=== PATIENT | male | born 1990 | race Caucasian/White ===

== ENCOUNTER 2016-12-15 18:45 | Emergency (ER) | payer OTHER ==
[~2016-12-15] VITALS: Ht 172.7 cm; Wt 74.8 kg
[2016-12-15 18:52] VITALS: BP 130/85
--- NOTE | 2016-12-15 19:36 | PHYS DOC ---
Past History Past Medical History: Asthma Past Surgical History: No Surgical History Alcohol Use: Occasionally Drug Use: None Adult General Chief Complaint Chief Complaint: CHEST WALL PAIN HPI HPI Patient is a 26 year old M who presents with R sided chest wall pain that started after lifting something heavy at work. He states that his pain is worse with movement and palpation. His pain is improved with rest and positioning. His pain does not radiate and is not associated with any other symptoms including shortness of breath Review of Systems Review of Systems Constitutional: Denies fever or chills [] Eyes: Denies change in visual acuity, redness, or eye pain [] HENT: Denies nasal congestion or sore throat [] Respiratory: Denies cough or shortness of breath [] Cardiovascular: No additional information not addressed in HPI [] GI: Denies abdominal pain, nausea, vomiting, bloody stools or diarrhea [] : Denies dysuria or hematuria [] Musculoskeletal: Denies back pain or joint pain [] Integument: Denies rash or skin lesions [] Neurologic: Denies headache, focal weakness or sensory changes [] Endocrine: Denies polyuria or polydipsia [] Family History Family History Noncontributory Current Medications Current Medications No medications Allergies Allergies Allergies Coded Allergies Type Severity Reaction Last Updated Verified No Known Drug Allergies 05/24/16 No Physical Exam Physical Exam Constitutional: Well developed, well nourished, no acute distress, non-toxic appearance. [] HENT: Normocephalic, atraumatic, Eyes: EOMI, conjunctiva normal, no discharge. [] Neck: Normal range of motion, no tenderness, supple, no stridor. [] Cardiovascular:Heart rate regular rhythm, no murmur [] Lungs & Thorax: Bilateral breath sounds clear to auscultation [] Mild to moderate pain over the R mid axilla. Abdomen: Bowel sounds normal, soft, no tenderness, no masses, no pulsatile masses. [] Extremities: No tenderness, no cyanosis, no clubbing, ROM intact, no edema. [] Neurologic: Alert and oriented X 3, normal motor function, normal sensory function, no focal deficits noted. [] Psychologic: Affect normal, judgement normal, mood normal. [] Current Patient Data Vital Signs Vital Signs Date Time Temp Pulse Resp B/P (MAP) Pulse Ox O2 Delivery O2 Flow Rate FiO2 12/15/16 18:52 98.4 79 18 98 Room Air EKG EKG [] Radiology/Procedures Radiology/Procedures [] Course & Med Decision Making Course & Med Decision Making Pertinent Labs and Imaging studies reviewed. (See chart for details) Imaging was declined Dragon Disclaimer Dragon Disclaimer This chart was dictated in whole or in part using Voice Recognition software in a busy, high-work load, and often noisy Emergency Department environment. It may contain unintended and wholly unrecognized errors or omissions. Departure Departure: Impression: Primary Impression: Muscle strain Disposition: HOME, SELF-CARE Condition: STABLE Referrals: PCP,NO (PCP) Patient Instructions: Muscle Strain Additional Instructions: Bharathi was seen in the ED for chest wall pain. No emergency medical condition was found on history or physical exam. His pain was most consistent with a muscle strain. He was advised to stretch and continue activity as tolerated. He is advised consider lidocaine patches for pain and to follow-up with his primary care doctor as needed for further management. He is advised to return to the emergency room if he develops new or worsening symptoms. YADI JACKMAN MD Dec 15, 2016 19:36
== END 2016-12-15 19:40 | disposition home or self-care (01) ==
LOC: ER 18:45
DX: S29.011A Strain of muscle and tendon of front wall of thorax, initial encounter (principal); J45.909 Unspecified asthma, uncomplicated; X58.XXXA Exposure to other specified factors, initial encounter; Y93.89 Activity, other specified; Y99.8 Other external cause status; Y92.89 Other specified places as the place of occurrence of the external cause
CPT/HCPCS: 99281

== ENCOUNTER 2017-01-13 12:45 | Emergency (ER) | payer OTHER ==
[~2017-01-13] VITALS: Ht 170.2 cm; Wt 72.7 kg
[2017-01-13 12:54] VITALS: BP 139/92
--- NOTE | 2017-01-13 13:07 | PHYS DOC ---
General Chief Complaint: MUSCLE SPASM/CRAMP Stated Complaint: muscle cramps Time Seen by MD: 13:05 Source: patient, old records Exam Limitations: no limitations Problems: History of Present Illness Initial Comments Patient is a 26-year-old male who comes to the ED complaining of left pectoral spasm. Patient states that all day today his left pectoral muscle has been intermittently cramping. It is not causing him any discomfort he denies any trauma he is just here because it has been doing it since he woke up. He was seen here a month ago for right-sided pectoral strain he was advised to follow- up with his primary care physician and chose not to. 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 He denies any arm symptoms no chest pain no difficulty breathing diaphoresis nausea vomiting or arm or neck symptoms. No pre-arrival treatment. Onset: this morning Severity: mild Pain/Injury Location: left other (pectoral) Method of Injury: unknown Modifying Factors: improves with other Allergies: Coded Allergies: No Known Drug Allergies (Unverified , 05/24/16) Past Medical History Medical History: no pertinent history, other (asthma) Surgical History: no surgical history Social History Smoker: non-smoker, chew Alcohol: none Drugs: none Review of Systems Constitutional: denies chills, denies fever, denies malaise Respiratory: denies cough, denies shortness of breath Cardiovascular: denies chest pain, denies palpitations, denies syncope Gastrointestinal: denies abdominal pain, denies diarrhea, denies nausea, denies vomiting Musculoskeletal: see HPI, denies back pain, denies joint pain, denies joint swelling, denies muscle pain, denies muscle stiffness, denies neck pain Psychiatric/Neurological: denies headache, denies numbness, denies paresthesia Physical Exam General Appearance: WD/WN, no apparent distress Neck: non-tender, supple Cardiovascular/Respiratory: normal peripheral pulses (no pectoral hypertonicity , tenderness, or spasm noted on exam), no respiratory distress Back: normal inspection, no CVA tenderness, no vertebral tenderness Shoulder: normal inspection, non-tender, no evidence of injury, normal ROM Elbow/Forearm: normal inspection, non-tender, no evidence of injury, normal ROM Neurologic/Tendon: normal sensation, normal motor functions, normal tendon functions, responds to pain, no evidence tendon injury Psychiatric: alert, oriented x 3 Skin: normal color, warm/dry Orders, Labs, Meds I advised him to discontinue smokeless tobacco BMP by i-STAT reveals normal findings, BUNs 19, creatinine 1.1 indicative of a mild dehydration. Departure Time of Disposition: 13:44 Disposition: 01 HOME, SELF-CARE Diagnosis: screening medical exam, smokeless tobacco abuse Condition: GOOD Patient Instructions: Dehydration, Adult, [id number] Additional Instructions: Discontinue smokeless tobacco use, seek medical assistance if necessary. As discussed no emergent condition is evident from today's emergency department visit. Your blood work does indicate very mild dehydration which could be the cause of your symptoms. Aggressive hydration with Gatorade to restore fluid deficit and try to prevent further symptoms. No activity restriction is necessary and no prescription medications are indicated. Follow-up with your doctor in 3-5 days if symptoms do not improve. Return to ED with new or changing symptoms. MARIA INES BOWER DO Jan 13, 2017 13:07
[2017-01-13 13:44] LABS: POTASSIUM ISTAT 4.6 mmol/L (3.5-5.0)
== END 2017-01-13 14:24 | disposition home or self-care (01) ==
LOC: ER 12:45
DX: Z00.00 Encounter for general adult medical examination without abnormal findings (principal); R07.89 Other chest pain; F17.220 Nicotine dependence, chewing tobacco, uncomplicated; J45.909 Unspecified asthma, uncomplicated
CPT/HCPCS: 36415; 80047; 85014; 85018; 99282

== ENCOUNTER 2017-03-02 08:53 | Emergency (ER) | payer OTHER ==
[2017-03-02 09:46] LABS: BACTERIA,URINE 0 /HPF (0-FEW); BILIRUBIN,URINE NEG (NEG); CLARITY,URINE CLEAR; COLOR,URINE YELLOW; GLUCOSE,URINE NEG (NEG); NITRITE,URINE NEG (NEG); RBC,URINE 0 /HPF (0-2); SQUAMOUS EPITHELIAL CELL,UR OCC /LPF; UROBILINOGEN,URINE 0.2 mg/dL (0.2 mg/dL); WBC,URINE 0 /HPF (0-4)
--- NOTE | 2017-03-02 10:04 | RAD ---
CHEST PA LATERAL Clinical Indication: pain right mid lateral back with breathing Comparison: None. Findings: Normal lung volume. No focal consolidations. Normal pulmonary vasculature. No pleural effusion or pneumothorax. The cardiomediastinal silhouette and great vessels are normal. No acute osseous abnormality. IMPRESSION: No acute cardiopulmonary process.
--- NOTE | 2017-03-02 10:08 | PHYS DOC ---
Past History Past Medical History: Asthma Past Surgical History: No Surgical History Alcohol Use: Occasionally Drug Use: None Adult General Chief Complaint Chief Complaint: BACK PAIN OR INJURY HPI HPI Patient is a 26-year-old healthy male who presents to the ED with some pain on the right lateral posterior chest wall, about the level of the lower aspect of his scapula. He woke with the pain this morning. He doesn't recall any injury. He does do quite a bit of lifting in his job. He's had no fever or chills, no cough, no shortness of air. He's never had pain like this before. He has not taken anything whatsoever for the pain. Review of Systems Review of Systems Constitutional: Denies fever or chills [] Respiratory: Denies cough or shortness of breath [] Allergies Allergies Allergies Coded Allergies Type Severity Reaction Last Updated Verified No Known Drug Allergies 05/24/16 No Physical Exam Physical Exam Constitutional: Well developed, well nourished, no acute distress, non-toxic appearance. Patient got himself out of his clothes and into a gown without difficulty. Ambulatory without difficulty. HENT: Normocephalic, atraumatic, bilateral external ears normal, nose normal. [] Eyes: conjunctiva normal, no discharge. [] Neck: Normal range of motion, no stridor. [] Cardiovascular:Heart rate regular rhythm, no murmur [] Lungs & Thorax: Bilateral breath sounds clear to auscultation Chest wall: There is no overlying skin abnormality, ecchymosis, or other finding. Area of pain is mildly tender to palpation without any palpable nodules , masses, etc. Skin: Warm, dry, no erythema, no rash. [] Back: As above Extremities: No tenderness, no cyanosis, no clubbing, ROM intact, no edema. [] Neurologic: Alert and oriented X 3, normal motor function, no focal deficits noted. [] Current Patient Data Lab Results Laboratory Tests Test 03/02/17 09:25 Urine Collection Type Unknown Urine Color Yellow Urine Clarity Clear Urine pH 5.0 Urine Specific [place] >=1.030 Urine Protein Neg (NEG-TRACE) Urine Glucose (UA) Neg mg/dL (NEG) Urine Ketones (Stick) Neg mg/dL (NEG) Urine Blood Neg (NEG) Urine Nitrite Neg (NEG) Urine Bilirubin Neg (NEG) Urine Urobilinogen Dipstick 0.2 mg/dL (0.2 mg/dL) Urine Leukocyte Esterase Neg (NEG) Urine RBC 0 /HPF (0-2) Urine WBC 0 /HPF (0-4) Urine Squamous Epithelial Cells Occ /LPF Urine Bacteria 0 /HPF (0-FEW) EKG EKG [] Radiology/Procedures Radiology/Procedures Two-view chest x-ray read by me. No acute findings.[] Course & Med Decision Making Course & Med Decision Making Pertinent Labs and Imaging studies reviewed. (See chart for details) [] Dragon Disclaimer Dragon Disclaimer This electronic medical record was generated, in whole or in part, using a voice recognition dictation system. Departure Departure: Impression: Primary Impression: Right-sided chest wall pain Disposition: 01 HOME, SELF-CARE Condition: STABLE Referrals: PCP,NO (PCP) Patient Instructions: Chest Wall Pain, [id number] Additional Instructions: Ibuprofen 600-800 mg every 6-8 hours as needed for pain. You may try ice 15-20 minutes out of every 1-2 hours to see if that helps. If you have fever 101 or higher, or develop other symptoms, return for reevaluation. DICKSON MEZA MD Mar 02, 2017 10:08
[2017-03-02 10:17] VITALS: BP 135/74
== END 2017-03-02 10:17 | disposition home or self-care (01) ==
LOC: ER 08:53
DX: R07.89 Other chest pain (principal); J45.909 Unspecified asthma, uncomplicated
CPT/HCPCS: 71020; 81001; 99285-25

== ENCOUNTER 2017-06-19 14:37 | Emergency (ER) | payer OTHER ==
[~2017-06-19] VITALS: Ht 170.2 cm; Wt 77.6 kg
[2017-06-19 14:37] VITALS: BP 129/29
--- NOTE | 2017-06-19 14:48 | PHYS DOC ---
Past History Past Medical History: No Pertinent History, Asthma Past Surgical History: No Surgical History Alcohol Use: Heavy Drug Use: Marijuana Adult General Chief Complaint Chief Complaint: FINGER INJURY [facility] HPI Patient is a 27 year old male who presents with fourth digit of the right hand nail injury. He smashed it with a hammer yesterday. States it hurts. Review of Systems Review of Systems Constitutional: Denies fever or chills [] Eyes: Denies change in visual acuity, redness, or eye pain [] HENT: Denies nasal congestion or sore throat [] Respiratory: Denies cough or shortness of breath [] Cardiovascular: No additional information not addressed in HPI [] GI: Denies abdominal pain, nausea, vomiting, bloody stools or diarrhea [] : Denies dysuria or hematuria [] Musculoskeletal: Denies back pain or joint pain [] Integument: Denies rash or skin lesions [] Neurologic: Denies headache, focal weakness or sensory changes [] Endocrine: Denies polyuria or polydipsia [] All other systems were reviewed and found to be within normal limits, except as documented in this note. Allergies Allergies Allergies Coded Allergies Type Severity Reaction Last Updated Verified No Known Drug Allergies 05/24/16 No Physical Exam Physical Exam Constitutional: Well developed, well nourished, no acute distress, non-toxic appearance. [] HENT: Normocephalic, atraumatic, bilateral external ears normal, oropharynx moist, no oral exudates, nose normal. [] Eyes: PERRLA, EOMI, conjunctiva normal, no discharge. [] Neck: Normal range of motion, no tenderness, supple, no stridor. [] Cardiovascular:Heart rate regular rhythm, no murmur [] Lungs & Thorax: Bilateral breath sounds clear to auscultation [] Abdomen: Bowel sounds normal, soft, no tenderness, no masses, no pulsatile masses. [] Skin: Warm, dry, no erythema, no rash. [] Back: No tenderness, no CVA tenderness. [] Extremities: Palpation base of the nail on the right hand fourth digit with ecchymosis under the nail bed and erythema at the nailbed, no cyanosis, no clubbing, ROM intact, no edema. Will flex extend at all joints of right hand sensation intact Neurologic: Alert and oriented X 3, normal motor function, normal sensory function, no focal deficits noted. [] Psychologic: Affect normal, judgement normal, mood normal. [] EKG EKG [] Radiology/Procedures Radiology/Procedures Review x-ray of the right hand did not show any fractures, foreign bodies or soft tissue abnormalities, as interpreted by me. Impressions: Finger contusion Course & Med Decision Making Course & Med Decision Making Pertinent Labs and Imaging studies reviewed. (See chart for details) Trephinated the nail on the fourth digit of the right hand. He had instant relief of pain. X-rays do not show any acute abnormality's. He is being discharged home. Return precautions given. He does not require antibiotics at this time. Dragon Disclaimer Dragon Disclaimer This electronic medical record was generated, in whole or in part, using a voice recognition dictation system. Departure Departure: Impression: Primary Impression: Contusion of right hand Disposition: HOME, SELF-CARE Condition: STABLE Referrals: PCP,NO (PCP) Patient Instructions: Hand Contusion Additional Instructions: The x-rays do not show anything broken. I made a small hole in your fingernail to drain out the blood. Please keep the area dry and clean and use triple antibiotic ointment on it. Your being discharged home. You can use over-the- counter pain meds as needed. Return ER if your hand becomes more painful, swollen, or has any signs of infection. Problem Qualifiers Primary Impression: Contusion of right hand Encounter type: initial encounter Qualified Codes: S60.221A - Contusion of right hand, initial encounter JESSICA GARCIA MD Jun 19, 2017 14:48
--- NOTE | 2017-06-19 16:33 | RAD ---
Indication: Trauma to the fourth digit with pain, redness and swelling Technique: 3 views of the right hand Comparison: Previous study from 05/24/2016 Findings: No acute fracture or dislocation. No soft tissue abnormality. No arthritic process. Impression: As above.
== END 2017-06-19 16:09 | disposition home or self-care (01) ==
LOC: ER 14:37
DX: S60.141A Contusion of right ring finger with damage to nail, initial encounter (principal); F12.10 Cannabis abuse, uncomplicated; F10.10 Alcohol abuse, uncomplicated; W31.89XA Contact with other specified machinery, initial encounter; Y93.89 Activity, other specified; Y99.8 Other external cause status; Y92.89 Other specified places as the place of occurrence of the external cause
CPT/HCPCS: 73140; 99284